=== PATIENT | female | born 1975 | race Hispanic/Latino ===

== ENCOUNTER 2017-05-19 15:49 | Emergency (ER) | payer BC ==
[2017-05-19 15:49] VITALS: BMI 26.5
[2017-05-19 16:09] VITALS: BP 90/62; TEMP 98.2
[2017-05-19 16:57] VITALS: PULSE 92; O2SAT 99
--- NOTE | 2017-05-19 17:10 | ED PDOC ---
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 Patient stated all standing on the toilet she fell on the floor. Patient was able to break the fall by placing her right hand on the floor. Patient denies head injury, dizziness, headaches, diplopia, neck pain, back pain, hip pain, knee pain, ankle pain, elbow pain, or shoulder pain Time/Duration: Prior to Arrival Quality: Aching Context: Home Past Medical History - Provider Review Nursing Documentation Reviewed: Yes - Past History Past History: No Previous - Infectious Disease Hx of Infectious Diseases: None - Tetanus Immunization Tetanus Immunization: Unknown - Reproductive Menopause: No - Past Medical History Past Medical History: Unable to Obtain - Cardiac Hx Cardiac Disorders: No - Pulmonary Hx Respiratory Disorders: Yes Hx Asthma: Yes Hx Bronchitis: Yes - Neurological Hx Neurological Disorder: Yes Hx Syncope: Yes (2012 due to pain medicine) - HEENT Hx HEENT Disorder: No - Renal Hx Renal Disorder: No - Endocrine/Metabolic Hx Endocrine Disorders: No - Hematological/Oncological Hx Blood Disorders: No - Integumentary Hx Dermatological Disorder: Yes Hx Eczema: Yes - Musculoskeletal/Rheumatological Hx Musculoskeletal Disorders: Yes Hx Back Pain: Yes Hx Falls: No Hx Fractures: Yes (left great toe) Hx Herniated Disk: Yes (l4 l5) Other/Comment: Spinal fusion L4 + L5 February 2013 at [facility] - Gastrointestinal Hx Gastrointestinal Disorders: Yes Other/Comment: Gastric bypass in 2002 - Genitourinary/Gynecological Hx Genitourinary Disorders: No - Psychiatric Hx Psychophysiologic Disorder: Yes Hx Anxiety: Yes Hx Depression: Yes Hx Substance Use: No Other/Comment: insomnia panic attacks - Past Surgical History Past Surgical History: Unable to Obtain - Surgical History Hx Gastric Bypass Surgery: Yes Hx Musculoskeletal Surgery: Yes (spinal fusion L4l5 I MONTH LATER REPAIR) - Anesthesia Hx Anesthesia: Yes Hx Anesthesia Reactions: Yes (NAUSEA) Hx Malignant Hyperthermia: No - Suicidal Assessment Feels Threatened In Home Enviroment: No Family/Social History - Physician Review Nursing Documentation Reviewed: Yes Family/Social History: Other (Noncontributory) Smoking Status: Heavy Smoker > 10 Cigarettes Daily Hx Alcohol Use: Yes ("glass of wine at night") Hx Substance Use: No Hx Substance Use Treatment: No Allergies/Home Meds Allergies/Adverse Reactions: Allergies No Known Allergies Allergy (Verified 05/19/17 16:09) Home Medications: Home Meds Medication Instructions Recorded Confirmed Alprazolam [Xanax] 2 mg PO TID 03/08/13 05/19/17 traZODone [Desyrel] 150 mg PO BID 05/08/15 05/19/17 Naproxen/Esomeprazole Mag [Vimovo 1 tab PO BID PRN 09/22/16 05/19/17 20 mg-375 mg] Review of Systems - Review of Systems Constitutional: Normal. absent: Fatigue, Weight Change, Fevers Eyes: Normal ENT: Normal Respiratory: Normal Cardiovascular: Normal Gastrointestinal: Normal Genitourinary Female: Normal Musculoskeletal: Other (Right wrist pain) Skin: Normal Neurological: Normal Endocrine: Normal Hemo/Lymphatic: Normal Psychiatric: Normal Physical Exam Vital Signs Temp Pulse Resp BP Pulse Ox 05/19/17 16:53 92 H 17 99 05/19/17 16:04 98.2 F 90 18 90/62 L 98 Temperature: Afebrile Blood Pressure: Normal Pulse: Regular Respiratory Rate: Normal Appearance: Positive for: Well-Appearing, Non-Toxic, Comfortable Pain Distress: None Mental Status: Positive for: Alert and Oriented X 3 - Systems Exam Head: Present: Atraumatic, Normocephalic, Other (No raccoon sign. No Dove's sign.) Pupils: Present: PERRL, Other (No high fever.) Extroacular Muscles: Present: EOMI. No: Entrapment Conjunctiva: Present: Normal Ears: Present: Normal, NORMAL TM, Normal Canal, Other (No hemotympanum.). No: Erythema, TM Bulging, Fluid, TM Perf Mouth: Present: Moist Mucous Membranes, Normal Lips, Normal Tounge, Normal Teeth. No: Dry, Drooling Pharnyx: Present: Normal, Other (Tongue piercing). No: ERYTHEMA, EXUDATE, TONSILS ENLARGED Nose (External): Present: Atraumatic. No: Abrasion Nose (Internal): Present: Normal Inspection Neck: Present: Normal Range of Motion, Trachea Midline. No: Meningeal Signs, MIDLINE TENDERNESS, Paraspinal Tenderness, Lymphadenopathy Respiratory/Chest: Present: Clear to Auscultation, Good Air Exchange. No: Respiratory Distress, Accessory Muscle Use, Wheezes, Decreased Breath Sounds, Rales, Retracting, Tender to Palpation Cardiovascular: Present: Regular Rate and Rhythm, Normal S1, S2. No: Murmurs Abdomen: No: Tenderness Back: Present: Normal Inspection. No: CVA Tenderness Upper Extremity: Present: Normal Inspection, Normal ROM, NORMAL PULSES, Tenderness (Mild right wrist tenderness on palpation.), Neurovascularly Intact, Capillary Refill < 2s. No: Cyanosis, Edema, Swelling, Erythema, Temperature Abnormalties, Deformity Lower Extremity: Present: Normal Inspection, NORMAL PULSES, Normal ROM, Neurovascularly Intact, Capillary Refill < 2 s. No: Edema, CALF TENDERNESS Neurological: Present: GCS=15, CN II-XII Intact, Speech Normal, Motor Func Grossly Intact, Normal Sensory Function, Normal Cerebellar Funct, Gait Normal Skin: Present: Warm, Dry, Normal Color. No: Rashes Psychiatric: Present: Alert, Oriented x 3, Normal Insight, Normal Concentration Medical Decision Making ED Course and Treatment: 05/19/17 17:32 Re-evaluation. Patient feels better. Discussed results and plan with patient who expresses understanding. All questions answered and there is agreement with the plan to discharge home with instructions. Patient stable for discharge. Return if symptoms persist or worsen. Wrist x-rays: No fracture or dislocation Procedure The cock-up splint splint placed on her right wrist by hvac refrigeration technician Re-evaluation Time: 17:41 Reassessment Condition: Re-examined, Improved - RAD Interpretation Radiology Orders: 05/19/17 17:08 WRIST, RIGHT 3 VIEWS [RAD] Stat - Medication Orders Current Medication Orders: Discontinued Medications Ketorolac Tromethamine (Toradol) 30 mg IM STAT STA Stop: 05/19/17 17:10 Last Admin: 05/19/17 17:18 Dose: 30 mg [facility] Pain Assessment Document 05/19/17 17:18 [email or web address] (Rec: 05/19/17 17:18 [email or web address] [facility] [id number]) Pain Reassessment Is this a pain reassessment? No Sleep Is patient sleeping during reassessment? No Presence of Pain Presence of Pain Yes Pain Scale Used Pain Scale Used Numeric Location Left, Right or Bilateral Right Pain Location Body Site Wrist Description Description Constant Intensity of Pain at present 8 Pain Behavior Facial Grimacing Aggravating Factors Changing Position Alleviating Factors/Management Position Change Techniques Alleviating Factors Medication IM Administration Charges Document 05/19/17 17:18 [email or web address] (Rec: 05/19/17 17:18 [email or web address] [facility] [id number]) Injection Site MAR Injection Site Right Deltoid Charges for Administration # of IM Administrations 1 Disposition/Present on Arrival - Present on Arrival Any Indicators Present on Arrival: No History of DVT/PE: No History of Uncontrolled Diabetes: No Urinary Catheter: No History of Decub. Ulcer: No History Surgical Site Infection Following: None - Disposition Have Diagnosis and Disposition been Completed?: Yes Diagnosis: Wrist pain Disposition: HOME/ ROUTINE Disposition Time: 17:34 Patient Plan: Discharge Patient Problems: Current Active Problems Problem Status Onset Wrist pain Acute Condition: IMPROVED Discharge Instructions (ExitCare): Wrist Sprain (ED) Additional Instructions: Call private doctor for follow-up visit in 1-2 days. Remove wrist splint at bedtime. She will right wrist elevated, ice pack, wrist splint for at least 5 days. Take medication as instructed with food. Return to emergency if pain worsens Prescriptions: Ketorolac Tromethamine [Toradol] 10 mg PO Q4H PRN #20 tab PRN Reason: Pain, Severe (8-10) Referrals: Lolita Garay NS [Primary Care Provider] - Follow up with primary Forms: [employer] (Danish)
[2017-05-19 17:53] VITALS: RESP 18
--- NOTE | 2017-05-20 17:10 | RAD ---
PROCEDURE: Right Wrist Radiographs. HISTORY: pain COMPARISON: None. FINDINGS: BONES: Normal. No fracture. JOINTS: Normal. No dislocation. SOFT TISSUES: Normal. OTHER FINDINGS: None. IMPRESSION: Normal right wrist radiographs. Concordant results with the preliminary interpretation rendered by the emergency department physician procedure.
== END 2017-05-19 17:53 | disposition home or self-care (01) ==
LOC: ED 15:49
DX: M25.531 Pain in right wrist (principal)
CPT/HCPCS: 73110; 81025; 96372; 99283; J1885

== ENCOUNTER 2018-10-23 16:43 | Emergency (ER) | payer BC | END 2018-10-23 19:40 | disposition home or self-care (01) | LOC: ED 16:43 ==